=== PATIENT | female | born 1980 | race Caucasian/White ===

== ENCOUNTER 2016-11-23 03:30 | Emergency (ER) | payer OTHER ==
[~2016-11-23] VITALS: Ht 167.6 cm; Wt 60.0 kg
[~2016-11-23 03:30] MED LIST: GABA400 PO; METH750T2 PO
[2016-11-23 03:33] VITALS: BP 144/75; PULSE 101; RESP 20; TEMP 98.2; O2SAT 98
[2016-11-23 03:54] LABS: AUTOMATED NEUTROPHIL # 9.1 TH/MM3 (1.8-7.7); BASOPHIL % 0.4 % (0.0-2.0); EOSINOPHIL # 0.1 TH/MM3 (0-0.4); EOSINOPHIL % 0.5 % (0.0-4.0); HEMATOCRIT 42.7 % (35.0-46.0); HEMO FLAGS DIFF FINAL; LYMPH % 17.4 % (9.0-44.0); LYMPHOCYTE # 2.2 TH/MM3 (1.0-4.8); MEAN CELL VOLUME 88.9 FL (80.0-100.0); MEAN CORPUSCULAR HGB CONC 32.6 % (32.0-36.0); MONO % 8.3 % (0.0-8.0); NEUT % 73.4 % (16.0-70.0); PLATELET COUNT 190 TH/MM3 (150-450); RED CELL DISTRIBUTION WIDTH 15.3 % (11.6-17.2); WHITE BLOOD COUNT 12.4 TH/MM3 (4.0-11.0)
[2016-11-23 04:23] LABS: ALT (GPT) 16 U/L (10-53); ANION GAP 12 MEQ/L (5-15); AST (GOT) 13 U/L (15-37); BICARBONATE 18.1 MEQ/L (21.0-32.0); BLOOD UREA NITROGEN 12 MG/DL (7-18); CHLORIDE 105 MEQ/L (98-107); GLOMERULAR FILTRATION RATE 78 ML/MIN (>89); POTASSIUM 3.8 MEQ/L (3.5-5.1); SODIUM (NA) 135 MEQ/L (136-145)
[2016-11-23 04:25] LABS: ALKALINE PHOSPHATASE 67 U/L (45-117); TOTAL BILIRUBIN ADULT 0.4 MG/DL (0.2-1.0)
[2016-11-23 04:40] LABS: AMPHETAMINE, URINE NEG (NEG); BARBITURATES, URINE NEG (NEG); COCAINE, URINE POS (NEG)
[2016-11-23 04:45] LABS: ACETAMINOPHEN LESS THAN 2.0 MCG/ML (10.0-30.0)
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
[2016-11-23 06:53] VITALS: BP 129/82; PULSE 108; RESP 18; O2SAT 100
[2016-11-23 10:32] VITALS: BP 123/88; PULSE 90; RESP 18; O2SAT 97
[2016-11-23] MEDS ORDERED: OLANZapine IM 10 MG VIAL IM ONE ×2 (10:47→12:00)
[2016-11-23] MEDS ORDERED: LORazepam 2 MG/ML VIAL ONE (10:49)
[2016-11-23] MEDS ORDERED: LORazepam 2 MG/ML VIAL IM ONE (12:00)
[2016-11-23 17:36] VITALS: BP 114/62; PULSE 104; RESP 18; O2SAT 98
[2016-11-23] MEDS ORDERED: BENZOCAINE 6 MG/MENTHOL 10 MG LOZENGE BUCCAL ONE (23:45)
[2016-11-24 02:14] VITALS: BP 118/91; PULSE 101; RESP 18; O2SAT 98
[2016-11-24 06:19] VITALS: BP 120/74; PULSE 82; RESP 18; O2SAT 98
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
[2016-11-24 10:33] VITALS: BP 120/77; PULSE 94; RESP 18; O2SAT 97
== END 2016-11-24 11:17 | disposition home or self-care (01) ==
LOC: NEPA 03:30 → NEPJ 11-24 11:17
DX: F19.950 Other psychoactive substance use, unspecified with psychoactive substance-induced psychotic disorder with delusions (principal); F31.9 Bipolar disorder, unspecified; F41.8 Other specified anxiety disorders; I10 Essential (primary) hypertension; F17.210 Nicotine dependence, cigarettes, uncomplicated; F14.10 Cocaine abuse, uncomplicated; Z88.8 Allergy status to other drugs, medicaments and biological substances
CPT/HCPCS: 80053; 80307; 80320; 84703; 85025; 96372; 99283; J2060; 80329; G0480

== ENCOUNTER 2017-01-05 17:30 | Emergency (ER) | payer SELFPAY ==
[~2017-01-05] VITALS: Ht 162.6 cm; Wt 60.0 kg
[2017-01-05 18:01] VITALS: BP 181/100; PULSE 114; RESP 18; TEMP 98.4; O2SAT 99
[2017-01-05] MEDS ORDERED: REME15TA PO (18:14)
[2017-01-05] MEDS ORDERED: GABA600T PO (18:14)
[2017-01-05] MEDS ORDERED: SODIUM CHLOR 0.9% 1000 ML INJ 1,000 ML IV ONE (18:29)
[2017-01-05] MEDS ORDERED: SODIUM CHLORIDE 0.9% FLUSH 10 ML FLUSH IVF PRN (18:30)
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
[2017-01-05 18:57] LABS: AUTOMATED NEUTROPHIL # 10.8 TH/MM3 (1.8-7.7); BASOPHIL # 0.1 TH/MM3 (0-0.2); BASOPHIL % 0.5 % (0.0-2.0); EOSINOPHIL # 0.1 TH/MM3 (0-0.4); EOSINOPHIL % 0.5 % (0.0-4.0); HEMATOCRIT 41.4 % (35.0-46.0); HEMO FLAGS DIFF FINAL; LYMPH % 15.1 % (9.0-44.0); LYMPHOCYTE # 2.2 TH/MM3 (1.0-4.8); MEAN CELL VOLUME 86.4 FL (80.0-100.0); MEAN CORPUSCULAR HEMOGLOBIN 27.7 PG (27.0-34.0); MEAN CORPUSCULAR HGB CONC 32.1 % (32.0-36.0); MONO % 9.4 % (0.0-8.0); NEUT % 74.5 % (16.0-70.0); PLATELET COUNT 293 TH/MM3 (150-450); RED BLOOD COUNT 4.79 MIL/MM3 (4.00-5.30); WHITE BLOOD COUNT 14.5 TH/MM3 (4.0-11.0)
[2017-01-05 19:05] VITALS: O2SAT 97
[2017-01-05 19:06] LABS: ANION GAP 8 MEQ/L (5-15)
[2017-01-05 19:15] LABS: ALKALINE PHOSPHATASE 68 U/L (45-117); ALT (GPT) 31 U/L (10-53); AST (GOT) 23 U/L (15-37); BICARBONATE 28.5 MEQ/L (21.0-32.0); BLOOD UREA NITROGEN 13 MG/DL (7-18); CHLORIDE 103 MEQ/L (98-107); GLOMERULAR FILTRATION RATE 51 ML/MIN (>89); POTASSIUM 3.7 MEQ/L (3.5-5.1); SODIUM (NA) 139 MEQ/L (136-145); TOTAL BILIRUBIN ADULT 0.4 MG/DL (0.2-1.0)
[2017-01-05 19:20] LABS: AMPHETAMINE, URINE NEG (NEG); BARBITURATES, URINE NEG (NEG); COCAINE, URINE POS (NEG)
[2017-01-05 19:21] VITALS: BP 162/109; PULSE 100; RESP 20; O2SAT 100
[2017-01-05 19:23] LABS: ACETAMINOPHEN LESS THAN 2.0 MCG/ML (10.0-30.0)
[2017-01-05 20:34] VITALS: BP 167/95; PULSE 90; RESP 16; O2SAT 97
--- NOTE | 2017-01-06 16:54 | EKG ---
Date Performed: 01/05/2017 Time Performed: 19:19:20 PTAGE: 36 years EKG: Sinus rhythm LEFT ATRIAL ENLARGEMENT ABNORMAL ECG Compared to prior tracing no significant change PREVIOUS TRACING : 10/18/2015 22.46 DOCTOR: Adam Godoy Interpretating Date/Time 01/06/2017 16:52:37
== END 2017-01-05 22:05 | disposition home or self-care (01) ==
LOC: NEPC 17:30
DX: F19.10 Other psychoactive substance abuse, uncomplicated (principal); I10 Essential (primary) hypertension; R94.31 Abnormal electrocardiogram [ECG] [EKG]; F17.200 Nicotine dependence, unspecified, uncomplicated; Z86.59 Personal history of other mental and behavioral disorders; Z87.39 Personal history of other diseases of the musculoskeletal system and connective tissue; Z86.79 Personal history of other diseases of the circulatory system; Z87.19 Personal history of other diseases of the digestive system; Z87.42 Personal history of other diseases of the female genital tract; Z86.69 Personal history of other diseases of the nervous system and sense organs
CPT/HCPCS: 80053; 80307; 84703; 85025; 93005

== ENCOUNTER 2017-01-15 05:20 | Emergency (ER) | payer SELFPAY ==
[~2017-01-15] VITALS: Ht 162.6 cm; Wt 60.0 kg
[~2017-01-15 05:20] MED LIST changes: -GABA400 PO; +GABA600T PO; -METH750T2 PO; +REME15TA PO
[2017-01-15 05:24] VITALS: BP 148/102; PULSE 130; RESP 22; TEMP 97.7; O2SAT 99
[2017-01-15] MEDS ORDERED: LIDOCAINE 1%/EPINEPHrine 1:100,000 SOLN 20 ML VIAL ONE (05:25)
[2017-01-15 06:56] LABS: AUTOMATED NEUTROPHIL # 5.4 TH/MM3 (1.8-7.7); BASOPHIL # 0.1 TH/MM3 (0-0.2); EOSINOPHIL # 0.1 TH/MM3 (0-0.4); EOSINOPHIL % 0.9 % (0.0-4.0); HEMATOCRIT 39.7 % (35.0-46.0); HEMO FLAGS DIFF FINAL; LYMPH % 36.9 % (9.0-44.0); LYMPHOCYTE # 3.6 TH/MM3 (1.0-4.8); MEAN CELL VOLUME 83.7 FL (80.0-100.0); MEAN CORPUSCULAR HEMOGLOBIN 27.7 PG (27.0-34.0); MEAN CORPUSCULAR HGB CONC 33.1 % (32.0-36.0); NEUT % 55.2 % (16.0-70.0); PLATELET COUNT 359 TH/MM3 (150-450); RED BLOOD COUNT 4.74 MIL/MM3 (4.00-5.30); WHITE BLOOD COUNT 9.7 TH/MM3 (4.0-11.0)
[2017-01-15 07:04] LABS: ANION GAP 11 MEQ/L (5-15); AST (GOT) 24 U/L (15-37); BLOOD UREA NITROGEN 12 MG/DL (7-18); CHLORIDE 110 MEQ/L (98-107); GLOMERULAR FILTRATION RATE 72 ML/MIN (>89); SODIUM (NA) 143 MEQ/L (136-145)
[2017-01-15 07:09] LABS: ALKALINE PHOSPHATASE 64 U/L (45-117); ALT (GPT) 22 U/L (10-53); BETA HCG QUANT LESS THAN 1 MIU/ML (0-5); TOTAL BILIRUBIN ADULT 0.2 MG/DL (0.2-1.0)
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
[2017-01-15] MEDS ORDERED: IBUP800T23 PO (08:10)
[2017-01-15] MEDS ORDERED: CEPH-460 PO (08:11)
== END 2017-01-15 06:40 | disposition left against medical advice (07) ==
LOC: NEPC 05:20
DX: S61.411A Laceration without foreign body of right hand, initial encounter (principal); S61.512A Laceration without foreign body of left wrist, initial encounter; F10.120 Alcohol abuse with intoxication, uncomplicated; R53.1 Weakness; F17.200 Nicotine dependence, unspecified, uncomplicated; W45.8XXA Other foreign body or object entering through skin, initial encounter; Z53.21 Procedure and treatment not carried out due to patient leaving prior to being seen by health care provider
CPT/HCPCS: 12002; 80053; 84702; 85025

== ENCOUNTER 2017-01-15 07:47 | Emergency (ER) | payer SELFPAY ==
[2017-01-15 07:50] VITALS: BP 128/92; PULSE 98; RESP 16; TEMP 98.6
[2017-01-15] MEDS ORDERED: IBUP800T23 PO (08:10)
[2017-01-15] MEDS ORDERED: CEPH-460 PO (08:11)
[2017-01-15] MEDS: IBUPROFEN 800 MG TAB PO ONE (08:12)
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
== END 2017-01-15 08:19 | disposition home or self-care (01) ==
LOC: NEPK 07:47
DX: S61.511D Laceration without foreign body of right wrist, subsequent encounter (principal); S61.411D Laceration without foreign body of right hand, subsequent encounter; F31.9 Bipolar disorder, unspecified; I10 Essential (primary) hypertension; F43.10 Post-traumatic stress disorder, unspecified; M19.90 Unspecified osteoarthritis, unspecified site; F17.200 Nicotine dependence, unspecified, uncomplicated; X58.XXXD Exposure to other specified factors, subsequent encounter
CPT/HCPCS: 99283

== ENCOUNTER 2017-01-31 11:21 | Emergency (ER) | payer OTHER ==
[~2017-01-31 11:21] MED LIST changes: +CEPH-460 PO; +IBUP800T23 PO
[2017-01-31 11:26] VITALS: BP 167/101; PULSE 101; RESP 20; TEMP 98.7; O2SAT 100
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
[2017-01-31 12:13] LABS: AUTOMATED NEUTROPHIL # 8.4 TH/MM3 (1.8-7.7); BASOPHIL # 0.1 TH/MM3 (0-0.2); BASOPHIL % 0.6 % (0.0-2.0); EOSINOPHIL # 0.1 TH/MM3 (0-0.4); EOSINOPHIL % 0.8 % (0.0-4.0); HEMATOCRIT 26.8 % (35.0-46.0); HEMO FLAGS DIFF FINAL; LYMPH % 20.6 % (9.0-44.0); LYMPHOCYTE # 2.4 TH/MM3 (1.0-4.8); MEAN CELL VOLUME 80.1 FL (80.0-100.0); MEAN CORPUSCULAR HEMOGLOBIN 25.8 PG (27.0-34.0); MEAN CORPUSCULAR HGB CONC 32.2 % (32.0-36.0); MONO % 7.2 % (0.0-8.0); NEUT % 70.8 % (16.0-70.0); PLATELET COUNT 360 TH/MM3 (150-450); RED BLOOD COUNT 3.34 MIL/MM3 (4.00-5.30); RED CELL DISTRIBUTION WIDTH 15.8 % (11.6-17.2); WHITE BLOOD COUNT 11.9 TH/MM3 (4.0-11.0)
[2017-01-31 12:35] LABS: ALKALINE PHOSPHATASE 56 U/L (45-117); ALT (GPT) 19 U/L (10-53); ANION GAP 10 MEQ/L (5-15); AST (GOT) 25 U/L (15-37); BICARBONATE 23.4 MEQ/L (21.0-32.0); BLOOD UREA NITROGEN 15 MG/DL (7-18); CHLORIDE 101 MEQ/L (98-107); GLOMERULAR FILTRATION RATE 49 ML/MIN (>89); POTASSIUM 3.6 MEQ/L (3.5-5.1); SODIUM (NA) 134 MEQ/L (136-145); TOTAL BILIRUBIN ADULT 0.2 MG/DL (0.2-1.0)
[2017-01-31 12:44] LABS: AMPHETAMINE, URINE NEG (NEG); BARBITURATES, URINE NEG (NEG); COCAINE, URINE POS (NEG)
[2017-01-31 13:45] VITALS: BP 141/89; PULSE 108; RESP 16; TEMP 98.7; O2SAT 100
[2017-01-31] MEDS ORDERED: GABAPENTIN 300 MG CAP PO ONE (14:30)
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
== END 2017-01-31 17:28 | disposition home or self-care (01) ==
LOC: NEPB 11:21 → NEDA 14:15 → NEPB 17:28
DX: F19.950 Other psychoactive substance use, unspecified with psychoactive substance-induced psychotic disorder with delusions (principal)
CPT/HCPCS: 80053; 80307; 84703; 85025; 99285